=== PATIENT | male | born 1975 | race African-American/Black ===

== ENCOUNTER 2021-04-26 18:21 | Emergency (ER) | payer OTHER ==
[~2021-04-26] VITALS: Ht 180.3 cm; Wt 100.0 kg
[2021-04-26 18:23] VITALS: BP 120/80
== END 2021-04-26 22:31 | disposition left against medical advice (07) ==
LOC: ER 18:21
DX: R07.89 Other chest pain (principal)
CPT/HCPCS: 80053; 83880; 84484; 93005; 99283